=== PATIENT | female | born 1955 | race Caucasian/White ===

== ENCOUNTER 2019-05-02 09:34 | Day surgery (SDC) | payer MEDICARE ==
[~2019-05-02] VITALS: Ht 144.8 cm; Wt 62.1 kg
[2019-05-02 10:20] LABS: EOSINOPHILS % 2.2 % (0.0-5.0); HEMATOCRIT. 29.8 % (36.0-48.0); HEMOGLOBIN. 9.8 g/dL (12.0-16.0); LYMPHOCYTES % 28.6 % (20.0-50.0); MEAN CORPUSCULAR HEMOGLOBIN 26.8 pg (28.0-32.0); MEAN CORPUSCULAR VOLUME 81.4 fL (81.0-99.0); MEAN PLATELET VOLUME 7.6 fl (7.4-10.4); MONOCYTES % 7.9 % (2.0-8.0); NEUTROPHILS % 60.3 % (40.0-76.0); PLATELET 531 x1000/uL (130-400); RED BLOOD CELL COUNT 3.65 mill/uL (4.2-5.4); RED CELL DISTRIBUTION WIDTH 17.5 % (11.6-14.6)
[2019-05-02 10:23] LABS: CHLORIDE 103 mEq/L (98-107); PARTIAL THROMBOPLASTIN TIME 27.5 sec (23.4-31.0); PROTHROMBIN TIME 10.6 sec (9.6-11.0)
[2019-05-02] MEDS ORDERED: PAPAVERINE HCL 30 MG/ML 2ML IV ONE (10:31)
[2019-05-02] MEDS ORDERED: BUPIVACAINE HCL/PF 0.5% (5MG/ML) 10ML ONE (10:32)
[2019-05-02] MEDS ORDERED: LIDOCAINE HCL 1% 20ML VIAL (Pyxis) INJ ONE (10:32)
[2019-05-02] MEDS ORDERED: HEPARIN SODIUM 1,000 UNIT/1ML VIAL IV ONE (10:32)
[2019-05-02] MEDS ORDERED: BACITRACIN 15GM TUBE TOP ONE (10:32)
[2019-05-02] MEDS ORDERED: THROMBIN (BOVINE) 5000 UNITS/VIAL TOP ONE (10:33)
[2019-05-02] MEDS ORDERED: BACITRACIN 50,000 UNITS/VIAL ONE (10:33)
[2019-05-02] MEDS ORDERED: KCL 20MEQ/100ML PREMIX 100 ML IV NR (10:59)
[2019-05-02] MEDS ORDERED: SODIUM CHLORIDE 0.9% 500 ML IV NR (11:00)
[2019-05-02] MEDS ORDERED: ASPI-1393 PO (11:35)
[2019-05-02] MEDS ORDERED: TEMA30CA5 PO (11:35)
[2019-05-02] MEDS ORDERED: TRAV2.5D BOTHEYE (11:35)
[2019-05-02] MEDS ORDERED: S350 PO (11:35)
[2019-05-02] MEDS ORDERED: BRIN8DRO BOTHEYE (11:35)
[2019-05-02] MEDS ORDERED: AMLO10TA80 PO (11:35)
[2019-05-02] MEDS ORDERED: GLIP5TAB12 PO (11:35)
[2019-05-02] MEDS ORDERED: METF-416 PO (11:35)
[2019-05-02] MEDS ORDERED: CLOP75TA33 PO (11:35)
[2019-05-02] MEDS ORDERED: OXYC-105 PO (11:35)
[2019-05-02] MEDS ORDERED: GABA600T PO (11:35)
[2019-05-02] MEDS ORDERED: LIDOCAINE HCL/PF 1% 10 MG/ML 5ML VIAL ONE (12:06)
[2019-05-02] MEDS ORDERED: MIDAZOLAM HCL 2 MG/2 ML VIAL ONE (12:06)
[2019-05-02] MEDS ORDERED: FENTANYL CITRATE/PF 50MCG/ML 2ML VIAL ONE ×2 (12:06→12:38)
[2019-05-02] MEDS ORDERED: ONDANSETRON HCL 4MG/2ML INJ ONE (12:06)
[2019-05-02] MEDS ORDERED: SUCCINYLCHOLINE CHLORIDE 200MG/10ML IV ONE (12:06)
[2019-05-02] MEDS ORDERED: METOCLOPRAMIDE HCL 10MG/2ML VIAL ONE (12:06)
[2019-05-02] MEDS ORDERED: PROPOFOL 200MG/20ML VIAL IV ONE ×2 (12:06→12:23)
[2019-05-02] MEDS ORDERED: GLYCOPYRROLATE 0.2 MG/ML 2ML VIAL ONE (12:06)
[2019-05-02] MEDS ORDERED: HEPARIN 1000 UNITS/ML 10ML ONE (12:49)
[2019-05-02] MEDS ORDERED: SODIUM CHLORIDE 0.9% 1,000 ML IV ONE (13:43)
[2019-05-02] MEDS ORDERED: ONDANSETRON HCL 4MG/2ML INJ IV PRN (13:45)
[2019-05-02] MEDS ORDERED: MEPERIDINE HCL/PF 25MG/ML CPJ IV PRN ×2 (13:45)
[2019-05-02] MEDS ORDERED: HYDROMORPHONE HCL/PF 2MG/ML CPJ IV PRN (13:45)
[2019-05-02] MEDS ORDERED: MORPHINE SULFATE 2 MG/ML CPJ (NOT FOR IM USE) IV PRN (13:45)
[2019-05-02] MEDS ORDERED: HYDROCODONE/APAP 7.5/325MG 1 TAB TABLET PO NR (15:00)
[2019-05-02 15:23] VITALS: BP 150/66
== END 2019-05-02 15:50 | disposition home or self-care (01) ==
LOC: OR 09:34 → EDSTATUS 12:30 → OR 15:50
PROVIDERS: ATTEND Surgery Vascular Surgery
DX: I70.213 Atherosclerosis of native arteries of extremities with intermittent claudication, bilateral legs (principal); I10 Essential (primary) hypertension; E11.51 Type 2 diabetes mellitus with diabetic peripheral angiopathy without gangrene; I25.10 Atherosclerotic heart disease of native coronary artery without angina pectoris; I25.2 Old myocardial infarction
CPT/HCPCS: 35302; 35371; 36415; 80048; 82962; 85025; 85610; 85730; 88304; 88311; 93005; C1884; J0330; J1644; J2175; J2250; J2405; J2704; J2765; J3010; J3480; J3490; J7040; J2440

== ENCOUNTER → 2020-06-18 | Outpatient (CLI) | payer MEDICARE ==
[~2020-06-18] MED LIST: AMLO10TA80 PO; ASPI-1497 PO; ATOR20TA PO; BRIN8DRO BOTHEYE; CARI350T28 PO; CILO50TA PO; CLOP75TA33 PO; DICY20TA11 PO; FURO40TA5 PO; GABA600T PO; GLIP5TAB12 PO; ISOS30TA6 PO; METF-416 PO; NITR0.4T49 SL; OXYC-105 PO; POTA20TA82 PO; TEMA30CA5 PO; TRAV2.5D BOTHEYE
== END | disposition home or self-care (01) ==
LOC: LAB 14:17
PROVIDERS: ATTEND Surgery Vascular Surgery
DX: Z20.828 Contact with and (suspected) exposure to other viral communicable diseases (principal); I70.90 Unspecified atherosclerosis
CPT/HCPCS: 87635; C9803

== ENCOUNTER 2020-06-22 07:08 | Inpatient (IN) | payer MEDICARE ==
[~2020-06-22] VITALS: Ht 144.8 cm; Wt 53.1 kg
[~2020-06-22 07:08] MED LIST changes: -ATOR20TA PO; -CILO50TA PO; -DICY20TA11 PO; -FURO40TA5 PO; -ISOS30TA6 PO; -NITR0.4T49 SL; -POTA20TA82 PO
[2020-06-22] MEDS ORDERED: SODIUM CHLORIDE 0.9% 1,000 ML IV SCH (08:00)
[2020-06-22] MEDS ORDERED: BACITRACIN 15GM TUBE TOP ONE (08:39)
[2020-06-22] MEDS ORDERED: THROMBIN (BOVINE) 5000 UNITS/VIAL TOP ONE (08:39)
[2020-06-22] MEDS ORDERED: HEPARIN SODIUM 1,000 UNIT/1ML VIAL IV ONE (08:40)
[2020-06-22] MEDS ORDERED: BUPIVACAINE HCL/PF 0.5% (5MG/ML) 10ML ONE ×2 (08:40→08:41)
[2020-06-22] MEDS ORDERED: BACITRACIN 50,000 UNITS/VIAL ONE (08:41)
[2020-06-22] MEDS ORDERED: LIDOCAINE HCL 1% 20ML VIAL (Pyxis) INJ ONE (08:42)
[2020-06-22 08:59] LABS: BASOPHILS % 0.6 % (0.0-2.0); EOSINOPHILS % 0.1 % (0.0-5.0); HEMATOCRIT. 30.9 % (36.0-48.0); HEMOGLOBIN. 10.4 g/dL (12.0-16.0); LYMPHOCYTES % 26.1 % (20.0-50.0); MEAN CORPUSCULAR HEMOGLOBIN 27.7 pg (28.0-32.0); MEAN CORPUSCULAR VOLUME 82.3 fL (81.0-99.0); MEAN PLATELET VOLUME 8.5 fl (7.4-10.4); MONOCYTES % 8.4 % (2.0-8.0); NEUTROPHILS % 64.8 % (40.0-76.0); PLATELET 367 x1000/uL (130-400); RED BLOOD CELL COUNT 3.76 mill/uL (4.2-5.4); RED CELL DISTRIBUTION WIDTH 16.1 % (11.6-14.6)
[2020-06-22 09:01] LABS: CHLORIDE 104 mEq/L (98-107)
[2020-06-22 09:05] LABS: PARTIAL THROMBOPLASTIN TIME 26.4 sec (23.4-31.0)
[2020-06-22] MEDS ORDERED: MORPHINE SULFATE 4 MG/ML CPJ (NOT FOR IM USE) IV PRN (10:00)
[2020-06-22] MEDS ORDERED: POTA20TA82 PO (10:07)
[2020-06-22] MEDS ORDERED: ASPI-1497 PO (10:07)
[2020-06-22] MEDS ORDERED: DICY20TA11 PO (10:07)
[2020-06-22] MEDS ORDERED: CILO50TA PO (10:07)
[2020-06-22] MEDS ORDERED: ATOR20TA PO (10:07)
[2020-06-22] MEDS ORDERED: FURO40TA5 PO (10:07)
[2020-06-22] MEDS ORDERED: NITR0.4T49 SL (10:07)
[2020-06-22] MEDS ORDERED: ISOS30TA6 PO (10:07)
[2020-06-22] MEDS ORDERED: HEPARIN 5000 UNITS/ML VIAL ONE (10:09)
[2020-06-22] MEDS ORDERED: LABETALOL 5MG/ML SYR 20 MG/4 ML SYRINGE IV PRN (10:45)
[2020-06-22] MEDS ORDERED: ONDANSETRON HCL 4MG/2ML INJ IV PRN ×2 (10:45→16:15)
[2020-06-22] MEDS ORDERED: MEPERIDINE HCL/PF 25MG/ML CPJ IV PRN (10:45)
[2020-06-22] MEDS: HYDROMORPHONE HCL/PF 2MG/ML CPJ IV PRN ×6 (12:46→19:58)
[2020-06-22 14:30] VITALS: BP 130/58
[2020-06-22 14:39] VITALS: BP 130/58
[2020-06-22 16:00] VITALS: BP 139/58
[2020-06-22] MEDS ORDERED: ACETAMINOPHEN 325MG TABLET PO PRN (16:15)
[2020-06-22] MEDS ORDERED: NALOXONE HCL 0.4 MG/ML 1ML VIAL IV PRN (16:15)
[2020-06-22] MEDS ORDERED: OXYCODONE HCL/ACETAMINOPHEN 5/325MG TABLET PO PRN (16:15)
[2020-06-22] MEDS: DEXT 5%/0.45% NACL KCL 20MEQ/L 1,000 ML IV SCH (17:11)
[2020-06-22] MEDS: CLOPIDOGREL 75MG TABLET PO SCH (17:16)
[2020-06-22] MEDS: ASPIRIN 81MG TABLET PO SCH (17:16)
[2020-06-22] MEDS ORDERED: METHOCARBAMOL 500MG TABLET PO PRN (18:00)
[2020-06-22 20:00] VITALS: BP 135/61
[2020-06-22] MEDS ORDERED: TEMAZEPAM 15MG CAPSULE PO PRN (21:00)
[2020-06-23] VITALS: BP 118/51
[2020-06-23] MEDS: HYDROMORPHONE HCL/PF 2MG/ML CPJ IV PRN ×2 (02:35→11:04)
[2020-06-23] MEDS: DEXT 5%/0.45% NACL KCL 20MEQ/L 1,000 ML IV SCH (02:35)
[2020-06-23 04:00] VITALS: BP 125/78
[2020-06-23 07:22] LABS: BASOPHILS % 0.4 % (0.0-2.0); EOSINOPHILS % 0.8 % (0.0-5.0); HEMATOCRIT. 27.5 % (36.0-48.0); HEMOGLOBIN. 9.2 g/dL (12.0-16.0); LYMPHOCYTES % 25.1 % (20.0-50.0); MEAN CORPUSCULAR HEMOGLOBIN 27.6 pg (28.0-32.0); MEAN CORPUSCULAR VOLUME 82.5 fL (81.0-99.0); MEAN PLATELET VOLUME 8.7 fl (7.4-10.4); MONOCYTES % 12.4 % (2.0-8.0); NEUTROPHILS % 61.3 % (40.0-76.0); PLATELET 319 x1000/uL (130-400); RED BLOOD CELL COUNT 3.33 mill/uL (4.2-5.4); RED CELL DISTRIBUTION WIDTH 16.3 % (11.6-14.6)
[2020-06-23 07:52] LABS: CHLORIDE 105 mEq/L (98-107)
[2020-06-23 08:00] VITALS: BP 146/58
[2020-06-23] MEDS: ASPIRIN 81MG TABLET PO SCH (09:00)
[2020-06-23] MEDS: CLOPIDOGREL 75MG TABLET PO SCH (09:00)
[2020-06-23 12:00] VITALS: BP 133/60
== END 2020-06-23 14:55 | disposition home health service (06) | DRG 253 ==
LOC: OR 07:08 → 6EST 07:09
PROVIDERS: ADMIT Surgery Vascular Surgery; ATTEND Surgery Vascular Surgery
PROC: 041L0KL Bypass Left Femoral Artery to Popliteal Artery with Nonautologous Tissue Substitute, Open Approach (ICD-10-PCS; principal; 2020-06-22)
DX: E11.51 Type 2 diabetes mellitus with diabetic peripheral angiopathy without gangrene (principal); F11.20 Opioid dependence, uncomplicated; I25.10 Atherosclerotic heart disease of native coronary artery without angina pectoris; E78.5 Hyperlipidemia, unspecified; I10 Essential (primary) hypertension; M51.16 Intervertebral disc disorders with radiculopathy, lumbar region; G89.4 Chronic pain syndrome; M47.26 Other spondylosis with radiculopathy, lumbar region; Z95.5 Presence of coronary angioplasty implant and graft; E87.6 Hypokalemia
CPT/HCPCS: 36415; 80048; 82962; 85025; 93005; 97162; 97535; C1768; J1170; J1644; J3490